=== PATIENT | female | born 2000 | race American Indian/Alaskan Native ===

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

== ENCOUNTER 2019-03-07 01:05 | Emergency (ER) | payer BC ==
[~2019-03-07] VITALS: Ht 160 cm; Wt 60.0 kg
[2019-03-07] MEDS ORDERED: ONDANSETRON ODT 4 MG PO ONE (02:30)
[2019-03-07] MEDS ORDERED: ONDANSETRON ODT 4 MG ONE (02:37)
[2019-03-07 03:49] VITALS: BP 122/74
== END 2019-03-07 03:51 | disposition home or self-care (01) ==
LOC: ED 02:03
DX: S09.90XA Unspecified injury of head, initial encounter (principal); J45.909 Unspecified asthma, uncomplicated; X58.XXXA Exposure to other specified factors, initial encounter; Y93.89 Activity, other specified; Y92.009 Unspecified place in unspecified non-institutional (private) residence as the place of occurrence of the external cause; Y99.8 Other external cause status
CPT/HCPCS: 70450; 99284; Q0162

== ENCOUNTER 2019-08-09 11:07 | Emergency (ER) | payer BC, OTHER ==
[~2019-08-09] VITALS: Ht 162.6 cm; Wt 59.0 kg
[2019-08-09 11:11] VITALS: BP 128/68
--- NOTE | 2019-08-09 11:25 | NUR ---
PT PRESENTING TO ER FOR PAINFUL URINATION, LOWER ABD PAIN, VAGINAL DISCHARGE X3 DAYS AND EMAIL NOTIFICATION THAT PT NEEDED TO BE CHECKED FOR AN STD. VSS AT THIS TIME. CALL LIGHT WITHIN REACH. PT UP TO RESTROOM FOR URINE COLLECTION.
--- NOTE | 2019-08-09 11:26 | NUR ---
PA AT BEDSIDE FOR ASSESSMENT
--- NOTE | 2019-08-09 11:40 | NUR ---
URINE COLLECTED AND SENT TO LAB. SETTING UP FOR PELVIC.
[2019-08-09 11:46] LABS: HCG UR SG 1.021 (1.003-1.030); MICROSCOPIC NOT IND
--- NOTE | 2019-08-09 12:15 | NUR ---
PELVIC EXAM COMPLETE, SWABS SENT TO LAB
--- NOTE | 2019-08-09 12:31 | NUR ---
F/U CALL PLACED TO LAB REGARDING DELAY IN WET PREP, LAB STS LOOKING INTO IT AND WILL CALL BACK
[2019-08-09 12:46] LABS: CLUE CELLS NONE SEEN (NONE SEEN); WET PREP WBCS MODERATE (FEW)
--- NOTE | 2019-08-09 12:53 | NUR ---
ALL RESULTS BACK AT THIS TIME, CHART UP FOR RECHECK
[2019-08-09] MEDS ORDERED: LIDOCAINE-MPF 1%, 2ML ONE (13:24)
[2019-08-09] MEDS ORDERED: CEFTRIAXONE 250 MG ONE (13:24)
[2019-08-09] MEDS ORDERED: AZITHROMYCIN 250 MG TABLET ONE (13:24)
[2019-08-09] MEDS ORDERED: AZITHROMYCIN 500 MG TABLET PO ONE (13:30)
[2019-08-09] MEDS ORDERED: CEFTRIAXONE 250 MG IM ONE (13:30)
== END 2019-08-09 13:54 | disposition home or self-care (01) ==
LOC: ED 12:25
DX: A56.01 Chlamydial cystitis and urethritis (principal); A54.01 Gonococcal cystitis and urethritis, unspecified; J45.909 Unspecified asthma, uncomplicated
CPT/HCPCS: 81003; 81025; 87210; 87491; 87591; 87808; 96372; 99284; J0696

== ENCOUNTER 2019-10-10 05:21 | Emergency (ER) | payer BC, OTHER ==
[~2019-10-10] VITALS: Ht 163.8 cm; Wt 56.9 kg
[2019-10-10 05:33] VITALS: BP 135/96
--- NOTE | 2019-10-10 06:01 | NUR ---
MD PERFORMED PELVIC EXAM, PATIENT TOLERATED IT WELL. SAMPLES SENT
[2019-10-10 06:09] LABS: CLUE CELLS NONE SEEN (NONE SEEN); WET PREP WBCS FEW (FEW)
[2019-10-10 06:32] LABS: HCG UR SG 1.017 (1.003-1.030); MICROSCOPIC NOT IND
--- NOTE | 2019-10-10 07:40 | NUR ---
DISCHARGE DISCUSSED, PATIENT WALKED TO DISCHARGE DESK BY RN.
== END 2019-10-10 07:40 | disposition home or self-care (01) ==
LOC: ED 06:04
DX: Z00.00 Encounter for general adult medical examination without abnormal findings (principal); J45.909 Unspecified asthma, uncomplicated
CPT/HCPCS: 81003; 81025; 87210; 87491; 87591; 87808; 99284